=== PATIENT | male | born 1995 ===

== ENCOUNTER 2024-10-02 14:24 | Outpatient (AMB) | payer OTHER, SELFPAY ==
--- NOTE | 2024-10-02 14:35 | A.OFFPC_ITS ---
Vital Signs 10/02/24 14:37 Height 5 ft 10.08 in Weight 312 lb 2 oz BMI 44.7 BP 140/90 H Blood Pressure Location Lt brachial Position Sitting Pulse 88 Pulse Source Pulse Oximeter Temp 97.3 F Temp Source Temporal Artery Scan Pulse Oximetry (%) 98 Oxygen Delivery Method Room Air Intake Visit Reasons: Establish care Intake Note: Patient is a new patient here to establish care for wellness visit. Transferring care from [facility] ([facility]). Medical records have been requested and have not received. Medical Superintendent Required: No Train Clerk: Not Required per policy Accompanied by: Self / Same As Patient Allergies Seasonal Allergies Allergy (Intermediate, Verified 10/02/24 14:47) Itchy Eyes Medication List - Last Reconciled 10/02/24 by FLY George No Known Home Meds Tobacco use date assessed: 10/02/24 Dental Screening Dental Screen Date: 10/02/24 Did you have a dental visit in the last 12 months?: Yes Did you have a dental problem in the last 6 months where you did not have access to dental care?: No Was dental information given to patient?: Patient has dentist HPI Establish care HPI Details The patient is a 29-year-old male presenting to [facility]. Noted to have elevated blood pressure and concerns regarding sleep apnea. He reports not feeling well rested and experiencing fatigue during daytime, irrespective of sleep duration, with this fatigue persisting for an extended period. The repeat blood pressure readings conducted today showed 154/92 mmHg, indicating hypertension. He recounts more frequent urination at night which initially was suspected to relate to fluctuating blood sugar levels, and a family-initiated blood glucose monitoring revealed hypoglycemia while sleeping. The patient is morbidly obese, with more weight gain noted in the past three years, and there exists a family history that includes sleep apnea and hypertension, cardiac disease in his mother, and diabetes in his father. The patient's symptoms regarding tiredness may relate to sleep disturbances, possibly untreated sleep apnea, contributing to or worsening hypertension. He denies any past significant medical history or prescribed medications. [facility] Surgical History History of wisdom tooth extraction Family History Father Sleep apnea Diabetes Over weight Mother Sleep apnea Over weight Heart disease Other Heart problem Social History Housing: House Alcohol intake: never Patient Tobacco Use Status: Never used Tobacco e-Cigarette/Vaping Use: Never Used Second Hand Smoke Exposure: No service: No Current occupational status: employed Current occupation: [employer] Cognitive needs: No Hearing needs: No Vision needs: No Questionnaire PHQ-9 Over the last 2 weeks, how often have you been bothered by any of the following problems? 1. Little interest or pleasure in doing things: not at all 2. Feeling down, depressed, or hopeless: not at all 3. Trouble falling or staying asleep, or sleeping too much: more than half the days 4. Feeling tired or having little energy: more than half the days 5. Poor appetite or overeating: several days 6. Feeling bad about yourself - or that you are a failure or have let yourself or your family down: several days 7. Trouble concentrating on things, such as reading the newspaper or watching television: not at all 8. Moving or speaking so slowly that other people could have noticed. Or the opposite - being so fidgety or restless that you have been moving around a lot more than usual: not at all 9. Thoughts that you would be better off or of hurting yourself in some way: not at all Total score: 6 Depression Screening Interpretation: Positive Depression Screening Done: Yes 65309 - PHQ-9 Billing: Yes Source: Developed by Drs. Dustin Leonard, Venita Stock, Henrik Smith and colleagues, with an educational salvador from [employer]. Thrive Questionnaire Date Thrive assessed: 10/02/24 I am a: Patient What is your living situation today?: I have a steady place to live Within the past 12 months, did the food you bought not last and you didn't have the money to get more?: I choose not to answer this question Within the past 12 months, did you worry whether your food would run out before you got money to buy more?: I choose not to answer this question Do you have trouble paying for medicines?: No Do you have trouble getting transportation to medical appointments?: No Do you have trouble paying your heating and electricity bill?: No Do you have trouble taking care of your child, family member or friend?: No Do you have trouble with day-to-day activities such as bathing, preparing meals, shopping, managing finances, etc.?: No Are you currently unemployed and looking for a job?: No Are you interested in more education?: I choose not to answer this question Please select the resources that you would like help with: None Currently or been in a relationship where the following occur: No concerns reported THRIVE Score: 0 AUDIT C Alcohol Use Questionnaire (AUDIT-C) 1. How often do you have a drink containing alcohol?: Never Total Score: 0 SARAH-7 AMB Questionnaire SARAH-7 Date SARAH - 7 assessed: 10/02/24 Feeling nervous, anxious, or on edge: 0 = Not at all Not being able to stop or control worryin = Not at all Worrying too much about different things: 1 = Several days Trouble relaxin = Several days Being so restless that it is hard to sit still: 1 = Several days Becoming easily annoyed or irritable: 0 = Not at all Feeling afraid as if something awful might happen: 0 = Not at all Total ASRAH-7 score (0-4 normal; 5-9 mild; 10-14 moderate; 15-21 severe): 3 Source: Developed by Drs. Dustin Leonard, Venita Stock, Henrik Smith and colleagues, with an educational salvador from [employer]. SARAH-7 Assessment Billing SARAH-7 Assessment Tool: SARAH-7 Assessment 06715 Review of Systems Const Reports daytime sleepiness, Reports fatigue, Denies headache(s), Reports lethargy, Reports snoring and Reports weight gain Eyes Denies loss of vision ENT Denies vertigo, Denies dizziness, Denies headache(s) and Denies sore throat Card Denies chest pain, Denies leg edema, Denies lightheadedness and Reports dyspnea on exertion Resp Denies cough, Denies hemoptysis, Reports dyspnea on exertion, Reports snoring and Denies wheezing GI Denies abdominal pain, Denies melena, Denies constipation, Denies diarrhea and Denies vomiting Denies dysuria, Denies urinary frequency and Denies urinary urgency Musc Denies arthralgias, Denies joint swelling, Denies numbness and Denies tingling Neuro Denies Abnormal speech present, Denies behavioral changes, Denies vertigo, Denies dizziness, Denies headache(s), Denies loss of vision, Denies memory loss, Denies numbness and Denies tingling Psych Denies anxiety, Denies behavioral changes, Denies depression, Denies memory loss and Denies panic attacks Endo Reports fatigue Sunny/Lymph Denies easy bleeding and Denies easy bruising Aller/Immun Denies wheezing Physical exam (Primary Care) Vital Signs: Last Vital Signs Temp 97.3 F 10/02/24 14:37 Pulse 88 10/02/24 14:37 BP 140/90 H 10/02/24 14:37 Pulse Ox 98 10/02/24 14:37 Oxygen Delivery Method Room Air 10/02/24 14:37 BMI result Body Mass Index 44.7 Tobacco/Smoking Status: Tobacco use Status Tobacco use date assessed 10/02/24 10/02/24 14:46 Patient Tobacco Use Status Never used Tobacco 10/02/24 14:46 e-Cigarette/Vaping Use Never Used 10/02/24 14:46 PHQ-9: PHQ-9 Score PHQ-9: Total score 6 10/02/24 15:26 Depression Screening Interpretation: Positive Thrive Assessment: Date of Thrive Assessment Date Thrive assessed 10/02/24 10/02/24 14:46 Currently or been in a relationship where the following occur: No concerns reported Const General: healthy appearing, no acute distress, alert and awake Nutritional Appearance: well nourished Orientation/consciousness: oriented to person, oriented to place and oriented to time HENMT Ears: TM's normal bilaterally General nose exam: Normal nasal mucous membranes and turbinates present Eyes Conjunctivae: conjunctivae normal Sclerae: sclerae normal Pupils: Equal, round and reactive pupils present Neck Neck: Yes no lymphadenopathy and Yes no JVD Thyroid: Thyroid normal Carotids: no bruits Resp Effort & Inspection: normal respiratory effort and not tachypneic Auscultation: no crackles, no rales, no rhonchi and no wheezes Cardio Rate: regular rate Rhythm: regular rhythm Heart sounds: no murmurs and normal S1 and S2 GI Inspection: Yes obesity Palpation (GI): Soft to palpation, nontender, no hepatomegaly and no splenomegaly Auscultation: normal bowel sounds General: Yes no CVA tenderness Back/Spine/Pelvis Back: no CVA tenderness Skin General skin exam: no rashes or lesions noted and dry skin Neuro General: oriented to person, oriented to place and oriented to time Cranial nerves: Yes Equal, round and reactive pupils present Speech: No Abnormal speech present Gait exam (Neuro): Normal gait present Motor exam (neuro): no tremor noted Extrem Right upper extremity: full ROM Left upper extremity: full ROM Right lower extremity: full ROM; no edema Left lower extremity: full ROM; no edema Psych Mental Status: mental status grossly normal Speech and movement: Normal speech and movement present Affect: normal affect Attitude: cooperative Thought process: Normal thought process present Results AMB Hemoglobin A1c AMB Hemoglobin A1c 5.5 % Last Edit by KAUSHIK Pavon on 10/02/24 15:27 Results Reviewed Results Reviewed: Laboratory Last Values Hgb A1c (Clinic) 5.5 % (4.0-6.0) 10/02/24 15:26 Coding Level of Care Code New Pt Level 3 (74237) Diagnoses Snoring R06.83 Tiredness R53.83 Morbid obesity E66.01 Additional Codes PHQ-9 - 29522 - PHQ-9 Billing: Yes ([id number]) SARAH-7 Assessment Billing - SARAH-7 Assessment Tool: SARAH-7 Assessment 22253 ([id number]) Time Spent (min) 31 Assessment & Plan Assessment & Plan (1) Snoring: Code(s): R06.83 - Snoring Category: Medical (2) Tiredness: Code(s): R53.83 - Other fatigue Category: Medical (3) Morbid obesity: Code(s): E66.01 - Morbid (severe) obesity due to excess calories Category: Medical Plan A1c 5.5% in office, Started on Amlodipine 5 mg daily, discussed lowering salt and caffeine intake. 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 Completed ordered fasting labs prior to appointment. Home sleep study ordered. Consider weight management program follow sleep study results. Patient was informed and verbally consented to the use of an ambient scribe for clinic note documentation during this visit. Orders: Orders Hemoglobin A1c 10/02/24 R35.81 - Nocturnal polyuria, Z00.00 - Encounter for general adult medical examination without abnormal findings TSH reflex Free T4 10/02/24 R35.81 - Nocturnal polyuria, Z00.00 - Encounter for general adult medical examination without abnormal findings UA CC w/rflx Micro + Cult 10/02/24 R35.81 - Nocturnal polyuria, Z00.00 - Encounter for general adult medical examination without abnormal findings AMB Hemoglobin A1c 10/02/24 Z13.9 - Encounter for screening, unspecified Complete Blood Count Auto Diff 10/02/24 R35.81 - Nocturnal polyuria, Z00.00 - Encounter for general adult medical examination without abnormal findings Comprehensive [place]. Panel Fast 10/02/24 R35.81 - Nocturnal polyuria, Z00.00 - Encounter for general adult medical examination without abnormal findings Glucose Fasting 10/02/24 R35.81 - Nocturnal polyuria, Z00.00 - Encounter for general adult medical examination without abnormal findings Lipid Panel 10/02/24 R35.81 - Nocturnal polyuria, Z00.00 - Encounter for general adult medical examination without abnormal findings Vitamin D 25-OH Total 10/02/24 R35.81 - Nocturnal polyuria, Z00.00 - Encounter for general adult medical examination without abnormal findings RT home sleep study 10/02/24 R06.83 - Snoring, R53.83 - Other fatigue Medications: New amlodipine 5 mg PO DAILY 30 tabs 2RF R03.0 - Elevated blood-pressure reading, without diagnosis of hypertension Patient Instructions: - Start taking Amlodipine once daily for blood pressure. - Record blood pressure readings twice daily in the morning and evening. - Cut down on dietary salt and caffeine. - Schedule and complete in-home sleep study to evaluate for sleep apnea. - Return for follow-up in four weeks or sooner if symptoms worsen. - Follow dietary advice and monitor glucose levels as necessary.
[2024-10-02 14:37] VITALS: BP 140/90; PULSE 88; TEMP 36.3; O2SAT 98; BMI 44.7
== END 2024-10-02 15:33 | disposition home or self-care (01) ==
LOC: HO.HMCH 14:25
DX: Z13.9 Encounter for screening, unspecified (principal)

== ENCOUNTER → 2024-10-02 14:24 | Outpatient (BNVA) | payer OTHER, SELFPAY | DX: R06.83 Snoring (principal); R53.83 Other fatigue; E66.01 Morbid (severe) obesity due to excess calories; Z68.41 Body mass index [BMI] 40.0-44.9, adult; R35.81 Nocturnal polyuria; Z13.1 Encounter for screening for diabetes mellitus | CPT/HCPCS: 83036; 96127 ==

== ENCOUNTER 2024-10-07 07:43 | Outpatient (REF) | payer OTHER, SELFPAY ==
[2024-10-07 07:57] LABS: MANUAL DIFF FLAG NO
[2024-10-07 08:10] LABS: Basophils Absolute Auto 0.1 X10*3/uL (0.0-0.2); Eosinophils Absolute Auto 0.6 X10*3/uL (0.0-0.4); Eosinophils Percent Auto 7.9 % (0-4); Hematocrit 43.8 % (42.0-52.0); Hemoglobin 14.8 g/dl (14.0-18.0); Imm Gran Abs Auto 0.02 X10*3/uL (0.00-0.03); Imm Gran Pct Auto 0.3 % (0.0-0.4); Lymphocytes Absolute Auto 2.4 X10*3/uL (1.2-4.9); Lymphocytes Percent Auto 34.5 % (20-40); Mean Corpuscular HGB Conc 33.8 g/dl (31.0-36.0); Mean Corpuscular Hemoglobin 27.6 pg (27.0-33.0); Mean Corpuscular Volume 81.6 fL (80.0-98.0); Mean Platelet Volume 10.5 fL (9.4-12.4); Monocytes Absolute Auto 0.6 X10*3/uL (0.1-1.2); Monocytes Percent Auto 8.3 % (2-11); Neutrophils Absolute Auto 3.4 x10*3/uL (2.0-8.3); Platelet Count 260 X10*3/uL (160-400); Red Blood Count 5.37 X10*6/uL (4.60-5.80); Red Cell Distribution Width 13.3 % (11.0-16.0)
[2024-10-07 08:44] LABS: Estimated Average Glucose 117 mg/dL; Hemoglobin A1C 148.9169 umol/L; Hemoglobin A1c % 5.7 % (<6.0)
[2024-10-07 09:07] LABS: Appearance Urine Turbid; Color Urine Yellow; Glucose Urine UA Negative (Negative); Leukocyte Esterase Urine Negative (Negative); Nitrite Urine Negative (Negative); UMIC TRIGGER UACC YES; Urine Blood Trace (Negative); Urine Ketones Negative (Negative); Urine Protein 100 (2+) mg/dL (Neg-Trace)
[2024-10-07 09:15] LABS: Alanine Aminotransferase 47 U/L (0-40); Albumin Level 4.2 g/dL (3.5-5.0); Alkaline Phosphatase 61 U/L (39-117); Anion Gap 10 (12-20); Aspartate Amino Transferase 26 U/L (5-37); Bilirubin Total 0.6 mg/dL (0.0-1.0); Blood Urea Nitrogen 14 mg/dL (9-16); Calcium 9.1 mg/dL (8.4-10.2); Carbon Dioxide 23 mmol/L (22-29); Chloride 109 mmol/L (96-108); Cholesterol 146 mg/dL (<200); Estimated Glomerular Filt Rate > 60; Glucose Fasting 118 mg/dL (60-99); HDL Cholesterol 38 mg/dL (>40); LDL Cholesterol Calculated 95 mg/dL (<100); Potassium 4.1 mmol/L (3.3-5.1); Sodium 138 mmol/L (135-145); Total Protein 7.2 g/dL (6.5-8.0); Triglycerides 65 mg/dL (<150)
[2024-10-07 09:24] LABS: Bacteria Urine Trace (None Seen); Hyaline Casts Urine 0-2 /LPF (0-2); RBC Urine 0-2 /HPF (0-2); Squamous Epithelial Cell Urine 0-2 /HPF (0-2); UACC Culture Trigger YES
[2024-10-07 09:25] LABS: TSH reflex Free T4 2.12 uIU/mL (0.32-4.0)
== END 2024-10-07 07:44 | disposition home or self-care (01) ==
LOC: HO.LAB 07:43
DX: Z00.00 Encounter for general adult medical examination without abnormal findings (principal); R35.81 Nocturnal polyuria; Z13.1 Encounter for screening for diabetes mellitus; Z13.29 Encounter for screening for other suspected endocrine disorder; Z13.220 Encounter for screening for lipoid disorders
CPT/HCPCS: 36415; 80053; 80061; 81001; 82306; 83036; 84443; 85025; 87086

== ENCOUNTER 2024-10-30 14:49 | Outpatient (AMB) | payer OTHER, SELFPAY ==
--- NOTE | 2024-10-30 15:08 | A.OFFPC_ITS ---
Vital Signs 10/30/24 15:10 Height 5 ft 10.08 in Weight 311 lb 2 oz BMI 44.5 BP 140/80 H Blood Pressure Location Lt brachial Position Sitting Pulse 92 Pulse Source Pulse Oximeter Temp 97.1 F Temp Source Temporal Artery Scan Pulse Oximetry (%) 97 Oxygen Delivery Method Room Air Intake Visit Reasons: blood evaluation/new med started Intake Note: Patient is here to follow up on Evaluated Blood pressure and med review. Photography And Prints Curator Required: No Magnet Maker: Not Required per policy Accompanied by: Self / Same As Patient Allergies Seasonal Allergies Allergy (Intermediate, Verified 10/30/24 15:20) Itchy Eyes Medication List - Last Reconciled 10/30/24 by FLY George lisinopril 5 mg PO DAILY Tobacco use date assessed: 10/30/24 Dental Screening Dental Screen Date: 10/02/24 HPI blood evaluation/new med started HPI Details The patient is a 29-year-old male presenting for evaluation of elevated blood pressure. He was started on lisinopril on his previous visit Blood pressure reading in office 138/86. The patient is having readings in the 120/70s at at home Denies chest pain, shortness of breath, heart palpitation or dizziness Reports intermittent cough/nasal congestion/mouth breathing for over a week No abdominal pain/change in bowel habits Denies urinary symptoms PFSH Surgical History History of wisdom tooth extraction Family History Father Sleep apnea Diabetes Over weight Mother Sleep apnea Over weight Heart disease Other Heart problem Social History Housing: House Alcohol intake: never Patient Tobacco Use Status: Never used Tobacco e-Cigarette/Vaping Use: Never Used Second Hand Smoke Exposure: No service: No Current occupational status: employed Current occupation: [employer] Cognitive needs: No Hearing needs: No Vision needs: No Questionnaire Thrive Questionnaire Date Thrive assessed: 10/02/24 I am a: Patient What is your living situation today?: I have a steady place to live Within the past 12 months, did the food you bought not last and you didn't have the money to get more?: I choose not to answer this question Within the past 12 months, did you worry whether your food would run out before you got money to buy more?: I choose not to answer this question Do you have trouble paying for medicines?: No Do you have trouble getting transportation to medical appointments?: No Do you have trouble paying your heating and electricity bill?: No Do you have trouble taking care of your child, family member or friend?: No Do you have trouble with day-to-day activities such as bathing, preparing meals, shopping, managing finances, etc.?: No Are you currently unemployed and looking for a job?: No Are you interested in more education?: I choose not to answer this question Please select the resources that you would like help with: None Currently or been in a relationship where the following occur: No concerns reported THRIVE Score: 0 SARAH-7 AMB Questionnaire SARAH-7 Date SARAH - 7 assessed: 10/02/24 Source: Developed by Drs. Dustin Leonard, Venita Stock, Henrik Smith and colleagues, with an educational salvador from [employer]. Review of Systems Const Denies headache(s) and Reports snoring Eyes Denies loss of vision ENT Denies vertigo, Denies dizziness, Denies headache(s), Reports nasal congestion and Denies sore throat Card Denies chest pain, Denies leg edema and Denies lightheadedness Resp Reports cough (Intermittent), Denies hemoptysis, Reports snoring and Denies wheezing GI Denies abdominal pain, Denies melena, Denies constipation, Denies diarrhea and Denies vomiting Denies dysuria, Denies urinary frequency and Denies urinary urgency Musc Denies arthralgias, Denies joint swelling, Denies numbness and Denies tingling Neuro Denies Abnormal speech present, Denies behavioral changes, Denies vertigo, Denies dizziness, Denies headache(s), Denies loss of vision, Denies memory loss, Denies numbness and Denies tingling Psych Denies anxiety, Denies behavioral changes, Denies depression, Denies memory loss and Denies panic attacks Sunny/Lymph Denies easy bleeding and Denies easy bruising Aller/Immun Denies wheezing Physical exam (Primary Care) Vital Signs: Last Vital Signs Temp 97.1 F 10/30/24 15:10 Pulse 92 10/30/24 15:10 BP 140/80 H 10/30/24 15:10 Pulse Ox 97 10/30/24 15:10 Oxygen Delivery Method Room Air 10/30/24 15:10 BMI result Body Mass Index 44.5 Tobacco/Smoking Status: Tobacco use Status Tobacco use date assessed 10/30/24 10/30/24 15:10 Patient Tobacco Use Status Never used Tobacco 10/30/24 15:10 e-Cigarette/Vaping Use Never Used 10/30/24 15:10 Thrive Assessment: Date of Thrive Assessment Date Thrive assessed 10/02/24 10/30/24 15:10 Currently or been in a relationship where the following occur: No concerns reported Const General: healthy appearing, no acute distress, alert and awake Nutritional Appearance: well nourished Orientation/consciousness: oriented to person, oriented to place and oriented to time HENMT Ears: TM's normal bilaterally General nose exam: Abnormal mucous membranes and turbinates present boggy and erythematous and Nasal discharge present purulent on the right Eyes Conjunctivae: conjunctivae normal Sclerae: sclerae normal Pupils: Equal, round and reactive pupils present Neck Neck: Yes no lymphadenopathy and Yes no JVD Thyroid: Thyroid normal Carotids: no bruits Resp Effort & Inspection: normal respiratory effort and not tachypneic Auscultation: no crackles, no rales, no rhonchi and no wheezes Cardio Rate: regular rate Rhythm: regular rhythm Heart sounds: no murmurs and normal S1 and S2 GI Palpation (GI): Soft to palpation, nontender, no hepatomegaly and no splenomegaly Auscultation: normal bowel sounds Skin General skin exam: no rashes or lesions noted and dry skin Neuro General: oriented to person, oriented to place and oriented to time Cranial nerves: Yes Equal, round and reactive pupils present Speech: No Abnormal speech present Gait exam (Neuro): Normal gait present Motor exam (neuro): no tremor noted Extrem Right upper extremity: full ROM Left upper extremity: full ROM Right lower extremity: full ROM; no edema Left lower extremity: full ROM; no edema Psych Mental Status: mental status grossly normal Speech and movement: Normal speech and movement present Affect: normal affect Attitude: cooperative Thought process: Normal thought process present Results Reviewed Results Reviewed: Laboratory Tests 10/07/24 10/07/24 07:49 07:56 WBC 7.0 RBC 5.37 Hgb 14.8 Hct 43.8 MCV 81.6 MCH 27.6 MCHC 33.8 RDW 13.3 Plt Count 260 MPV 10.5 Sodium 138 Potassium 4.1 Chloride 109 H Carbon Dioxide 23 Anion Gap 10 L BUN 14 Creatinine 0.82 Estimated GFR > 60 Fasting Glucose 118 H Estimat Average Glucose 117 Hemoglobin A1c % 5.7 Calcium 9.1 Total Bilirubin 0.6 AST 26 ALT 47 H Alkaline Phosphatase 61 Total Protein 7.2 Albumin 4.2 Triglycerides 65 Cholesterol 146 LDL Cholesterol, Calc 95 HDL Cholesterol 38 L 25-OH Vitamin D Total 24.0 L TSH 2.12 Urine Color Yellow Urine Appearance Turbid Urine pH 6.0 Ur Specific [place] 1.020 Urine Protein 100 (2+) H Urine Glucose (UA) Negative Urine Ketones Negative Urine Blood Trace H Urine Nitrite Negative Ur Leukocyte Esterase Negative Urine RBC 0-2 Urine WBC 6-10 H Ur Squamous Epith Cells 0-2 Urine Bacteria Trace Hyaline Casts 0-2 Coding Level of Care Code Est Pt Level 4 (42009) Diagnoses Elevated ALT measurement R74.01 Vitamin D deficiency E55.9 Impaired fasting glucose R73.01 Morbid obesity E66.01 Elevated blood pressure reading in office without diagnosis of hypertension R03.0 Other microscopic hematuria R31.29 Hematuria type: other microscopic Rhinosinusitis J32.9 Time Spent (min) 38 Assessment & Plan Assessment & Plan (1) Elevated ALT measurement: Code(s): R74.01 - Elevation of levels of liver transaminase levels Category: Medical Plan: ALT slightly elevated. Patient denies drinking alcohol and only takes Tylenol sparingly. Encouraged the patient to work on losing weight, which will help decreasing his liver enzyme. (2) Vitamin D deficiency: Code(s): E55.9 - Vitamin D deficiency, unspecified Category: Medical Plan: Encouraged vitamin D3 a 1000 IU OTC (3) Impaired fasting glucose: Code(s): R73.01 - Impaired fasting glucose Category: Medical Plan: Fasting glucose 118. A1c 5.7%. Informed the patient that he is right at the cutoff of being prediabetic Encouraged a low sugar/carbohydrate diet and activity as tolerated (4) Morbid obesity: Code(s): E66.01 - Morbid (severe) obesity due to excess calories Category: Medical Plan: Encouraged to exercise for at least 30 minutes a day/5 days a week Healthy eating discussed. Encouraged to eat fruits/vegetables, protein- fish/baked chicken, and to avoid salty/fried foods, sweets, caffeine and carbohydrates. Encouraged to increase water intake 6-8 glasses a day (5) Elevated blood pressure reading in office without diagnosis of hypertension: Code(s): R03.0 - Elevated blood-pressure reading, without diagnosis of hypertension Category: Medical Plan: Blood pressure 140/80 in office. Rechecked 138/86. The patient is having readings in the 120s/70s at at home Continue lisinopril 5 mg daily. Encouraged mg blood pressure closely at home and forward readings on portal (6) Hematuria: Code(s): R31.9 - Hematuria, unspecified Category: Medical Qualifiers: Hematuria type: other microscopic Qualified Code(s): R31.29 - Other microscopic hematuria Plan: Trace blood in the urine. Asymptomatic She will recheck urinalysis (7) Rhinosinusitis: Code(s): J32.9 - Chronic sinusitis, unspecified Category: Medical Plan: Z-Solis ordered. Prednisone tapered and Flonase inhaler ordered Plan Follow up in 3 months. Complete preordered labs prior to follow up appointment Orders: Orders Complete Blood Count Auto Diff 3 Months E55.9 - Vitamin D deficiency, unspecified, E66.01 - Morbid (severe) obesity due to excess calories, R03.0 - Elevated blood-pressure reading, without diagnosis of hypertension, R73.01 - Impaired fasting glucose, R74.01 - Elevation of levels of liver transaminase levels Comprehensive [place]. Panel Fast 3 Months E55.9 - Vitamin D deficiency, unspecified, E66.01 - Morbid (severe) obesity due to excess calories, R03.0 - Elevated blood-pressure reading, without diagnosis of hypertension, R73.01 - Impaired fasting glucose, R74.01 - Elevation of levels of liver transaminase levels Lipid Panel 3 Months E55.9 - Vitamin D deficiency, unspecified, E66.01 - Morbid (severe) obesity due to excess calories, R03.0 - Elevated blood-pressure reading, without diagnosis of hypertension, R73.01 - Impaired fasting glucose, R74.01 - Elevation of levels of liver transaminase levels TSH reflex Free T4 3 Months E55.9 - Vitamin D deficiency, unspecified, E66.01 - Morbid (severe) obesity due to excess calories, R03.0 - Elevated blood-pressure reading, without diagnosis of hypertension, R73.01 - Impaired fasting glucose, R74.01 - Elevation of levels of liver transaminase levels UA CC w/rflx Micro + Cult 3 Months E55.9 - Vitamin D deficiency, unspecified, E66.01 - Morbid (severe) obesity due to excess calories, R03.0 - Elevated blood- pressure reading, without diagnosis of hypertension, R73.01 - Impaired fasting glucose, R74.01 - Elevation of levels of liver transaminase levels Vitamin D 25-OH Total 3 Months E55.9 - Vitamin D deficiency, unspecified, E66.01 - Morbid (severe) obesity due to excess calories, R03.0 - Elevated blood- pressure reading, without diagnosis of hypertension, R73.01 - Impaired fasting glucose, R74.01 - Elevation of levels of liver transaminase levels Hemoglobin A1c 3 Months E55.9 - Vitamin D deficiency, unspecified, E66.01 - Morbid (severe) obesity due to excess calories, R03.0 - Elevated blood-pressure reading, without diagnosis of hypertension, R73.01 - Impaired fasting glucose, R74.01 - Elevation of levels of liver transaminase levels Medications: New azithromycin For 250 mg dose pack: take 500 mg today (day 1), then 250 mg for 4 days (days 2-5) PO 6 tabs 0RF prednisone see taper instructions take 4 tabs x 2 days, then 3 tabs x2 days, then 2 tabs x 2 days, then 1 tab x 2 days 10 mg PO DIRECTED 20 tabs 0RF fluticasone propionate 50 mcg/actuation administer into each nostril 2 sprays intranasal BID 16 grams 0RF
[2024-10-30 15:10] VITALS: BP 140/80; PULSE 92; TEMP 36.2; O2SAT 97; BMI 44.5
== END 2024-10-30 16:09 | disposition home or self-care (01) ==
LOC: HO.HMCH 14:50
DX: R74.01 Elevation of levels of liver transaminase levels (principal); E66.01 Morbid (severe) obesity due to excess calories; Z68.41 Body mass index [BMI] 40.0-44.9, adult; E55.9 Vitamin D deficiency, unspecified; R73.01 Impaired fasting glucose; R03.0 Elevated blood-pressure reading, without diagnosis of hypertension; R31.29 Other microscopic hematuria; J32.9 Chronic sinusitis, unspecified

== ENCOUNTER → 2024-10-30 14:49 | Outpatient (BNVA) | payer OTHER, SELFPAY | DX: Z13.89 Encounter for screening for other disorder (principal) ==

== ENCOUNTER 2024-11-20 14:51 | Outpatient (AMB) | payer OTHER, SELFPAY ==
--- NOTE | 2024-11-20 14:54 | MHC.PC.OV ---
Vital Signs 11/20/24 14:57 Height 5 ft 10.8 in Weight 312 lb BMI 43.8 BP 138/68 Blood Pressure Location Lt brachial Position Sitting Pulse 81 Pulse Source Pulse Oximeter Temp 97.1 F Temp Source Temporal Artery Scan Pulse Oximetry (%) 98 Oxygen Delivery Method Room Air Intake Visit Reasons: ear flush Intake Note: Patient is here to follow up on Ear flush. Assembling Fabricator Required: No Barrel Cap Setter: Not Required per policy Accompanied by: Self / Same As Patient Allergies Seasonal Allergies Allergy (Intermediate, Verified 11/20/24 15:14) Itchy Eyes Medication List - Last Reconciled 11/20/24 by Marianne Zamora PA-C fluticasone propionate 50 mcg/actuation 2 sprays intranasal BID lisinopril 5 mg PO DAILY Tobacco use date assessed: 11/20/24 Dental Screening Dental Screen Date: 10/02/24 HPI ear flush HPI Details 29-year-old male coming to the office for ear cleaning. Has been using debrox drops OTC for one week. [facility] Surgical History History of wisdom tooth extraction Family History Father Sleep apnea Diabetes Over weight Mother Sleep apnea Over weight Heart disease Other Heart problem Social History Housing: House Alcohol intake: never Patient Tobacco Use Status: Never used Tobacco e-Cigarette/Vaping Use: Never Used Second Hand Smoke Exposure: No service: No Current occupational status: employed Current occupation: [employer] Cognitive needs: No Hearing needs: No Vision needs: No Questionnaire Thrive Questionnaire Date Thrive assessed: 11/20/24 I am a: Patient What is your living situation today?: I have a steady place to live Within the past 12 months, did the food you bought not last and you didn't have the money to get more?: I choose not to answer this question Within the past 12 months, did you worry whether your food would run out before you got money to buy more?: I choose not to answer this question Do you have trouble paying for medicines?: No Do you have trouble getting transportation to medical appointments?: No Do you have trouble paying your heating and electricity bill?: No Do you have trouble taking care of your child, family member or friend?: No Do you have trouble with day-to-day activities such as bathing, preparing meals, shopping, managing finances, etc.?: No Are you currently unemployed and looking for a job?: No Are you interested in more education?: I choose not to answer this question Please select the resources that you would like help with: None Currently or been in a relationship where the following occur: No concerns reported THRIVE Score: 0 SARAH-7 AMB Questionnaire SARAH-7 Date SARAH - 7 assessed: 10/02/24 Source: Developed by Drs. Dustin Leonard, Venita Stock, Henrik Smith and colleagues, with an educational salvador from [employer]. Review of Systems ENT Details: Decreased hearing in clogged feeling bilaterally Physical exam (Primary Care) Vital Signs: Last Vital Signs Temp 97.1 F 11/20/24 14:57 Pulse 81 11/20/24 14:57 BP 138/68 11/20/24 14:57 Pulse Ox 98 11/20/24 14:57 Oxygen Delivery Method Room Air 11/20/24 14:57 BMI result Body Mass Index 43.8 Tobacco/Smoking Status: Tobacco use Status Tobacco use date assessed 11/20/24 11/20/24 15:04 Patient Tobacco Use Status Never used Tobacco 11/20/24 15:04 e-Cigarette/Vaping Use Never Used 11/20/24 15:04 Thrive Assessment: Date of Thrive Assessment Date Thrive assessed 11/20/24 11/20/24 15:04 Currently or been in a relationship where the following occur: No concerns reported Const General: cooperative, healthy appearing, comfortable and no acute distress HENMT Head: Yes normocephalic Ears: hearing grossly normal bilaterally, TM's normal bilaterally and Abnormal EAC present foreign body on the left General nose exam: Normal external nose present Resp Effort & Inspection: normal respiratory effort Cardio Rate: regular rate Extrem General: Yes normal to inspection, Yes full ROM and No edema Psych Affect: normal affect Attitude: cooperative Insight: Good insight present (Psych) Judgement: Good judgement present (Psych) Coding Level of Care Code Procedure Only Diagnoses Foreign body in left ear T16.2XXA Assessment & Plan Assessment & Plan (1) Foreign body in left ear: Code(s): T16.2XXA - Foreign body in left ear, initial encounter Category: Medical Plan: Foreign body was successfully removed using lighted curette. Ear canal and TM was atraumatic. TM was visualized as intact with well aerated middle ear spaces without retraction or perforation. Foreign body was identified as a Q-tip cotton recommend against the use of Q-tips going forward. Plan This note was constructed using voice recognition software. While every effort has been made to ensure accuracy and drop shipment clerk, still areas may have been included sometimes these areas may affect the content or meeting of the given symptoms. Total time spent caring for the patient today was twenty minutes. This includes time spent before the visit reviewing the chart, time spent during the visit, and time spent after the visit and documentation.
[2024-11-20 14:57] VITALS: BP 138/68; PULSE 81; TEMP 36.2; O2SAT 98; BMI 43.8
== END 2024-11-20 15:39 | disposition home or self-care (01) ==
LOC: HO.HMCH 14:52
DX: T16.2XXA Foreign body in left ear, initial encounter (principal)

== ENCOUNTER → 2024-11-20 14:51 | Outpatient (BNVA) | payer OTHER, SELFPAY | DX: T16.2XXA Foreign body in left ear, initial encounter (principal); W44.8XXA Other foreign body entering into or through a natural orifice, initial encounter; Y93.9 Activity, unspecified; Y92.9 Unspecified place or not applicable; Y99.9 Unspecified external cause status | CPT/HCPCS: 69200 ==

== ENCOUNTER → 2024-12-12 12:49 | Outpatient (REF) | payer OTHER, SELFPAY | LOC: HO.SL 12:49 | DX: G47.33 Obstructive sleep apnea (adult) (pediatric) (principal); R53.83 Other fatigue; R06.83 Snoring | CPT/HCPCS: 95806 ==

== ENCOUNTER → 2024-12-12 13:33 | Outpatient (BNV) | payer OTHER, SELFPAY | PROVIDERS: Visit Provider Internal Medicine | DX: G47.33 Obstructive sleep apnea (adult) (pediatric) (principal) | CPT/HCPCS: 95806 ==

== ENCOUNTER 2025-01-30 15:19 | Outpatient (AMB) | payer OTHER, SELFPAY ==
[2025-01-30 15:28] VITALS: BP 136/70; PULSE 80; RESP 18; O2SAT 98; BMI 43.9
--- NOTE | 2025-01-30 15:28 | MHC.PC.OV ---
Vital Signs 01/30/25 15:28 01/30/25 15:58 Height 5 ft 10.8 in Weight 313 lb 6 oz BMI 43.9 BP 136/70 134/82 Blood Pressure Location Lt brachial Rt brachial Position Sitting Sitting Respiration 18 Pulse 80 Pulse Source Pulse Oximeter Temp Source Temporal Artery Scan Pulse Oximetry (%) 98 Oxygen Delivery Method Room Air Intake Visit Reasons: 3 month f/u Pharmacist In Charge Owner Required: No Accompanied by: Self / Same As Patient Allergies Seasonal Allergies Allergy (Intermediate, Verified 01/30/25 15:52) Itchy Eyes Medication List - Last Reconciled 01/30/25 by FLY George fluticasone propionate 50 mcg/actuation 2 sprays intranasal BID lisinopril 5 mg PO DAILY Tobacco use date assessed: 01/30/25 Dental Screening Dental Screen Date: 01/30/25 Did you have a dental visit in the last 12 months?: Yes Did you have a dental problem in the last 6 months where you did not have access to dental care?: No Was dental information given to patient?: Patient has dentist HPI 3 month f/u HPI Details The patient is a 29-year-old male presenting with concerns regarding blood pressure management, liver enzyme levels, and weight management. The patient has a history of essential hypertension, which has been a primary concern during this visit. Blood pressure readings have shown improvement, and the patient is advised to continue monitoring at home. Previously, liver enzyme levels were noted to be slightly elevated, prompting a follow-up to ensure they are decreasing. The patient is advised to undergo further blood work to monitor these levels. The patient is also diagnosed with obstructive sleep apnea and is awaiting the provision of a CPAP machine, expected in March. The use of the CPAP machine is anticipated to improve both sleep quality and blood pressure control. The patient expresses concern about obesity, with a current weight of 313 pounds, which has remained relatively stable over recent measurements. Lifestyle modifications, including dietary changes and increased physical activity, are recommended as initial interventions. PFSH Surgical History History of wisdom tooth extraction Family History Father Sleep apnea Diabetes Over weight Mother Sleep apnea Over weight Heart disease Other Heart problem Social History Housing: House Alcohol intake: never Patient Tobacco Use Status: Never used Tobacco e-Cigarette/Vaping Use: Never Used Second Hand Smoke Exposure: No service: No Current occupational status: employed Current occupation: [employer] Cognitive needs: No Hearing needs: No Vision needs: No Questionnaire PHQ-9 Over the last 2 weeks, how often have you been bothered by any of the following problems? 1. Little interest or pleasure in doing things: not at all 2. Feeling down, depressed, or hopeless: not at all 3. Trouble falling or staying asleep, or sleeping too much: more than half the days 4. Feeling tired or having little energy: more than half the days 5. Poor appetite or overeating: several days 6. Feeling bad about yourself - or that you are a failure or have let yourself or your family down: several days 7. Trouble concentrating on things, such as reading the newspaper or watching television: not at all 8. Moving or speaking so slowly that other people could have noticed. Or the opposite - being so fidgety or restless that you have been moving around a lot more than usual: not at all 9. Thoughts that you would be better off or of hurting yourself in some way: not at all Total score: 6 Depression Screening Interpretation: Positive Depression Screening Done: Yes Source: Developed by Drs. Dustin Leonard, Venita Stock, Henrik Smith and colleagues, with an educational salvador from [employer]. Thrive Questionnaire Date Thrive assessed: 01/30/25 I am a: Patient What is your living situation today?: I have a steady place to live Within the past 12 months, did the food you bought not last and you didn't have the money to get more?: I choose not to answer this question Within the past 12 months, did you worry whether your food would run out before you got money to buy more?: I choose not to answer this question Do you have trouble paying for medicines?: No Do you have trouble getting transportation to medical appointments?: No Do you have trouble paying your heating and electricity bill?: No Do you have trouble taking care of your child, family member or friend?: No Do you have trouble with day-to-day activities such as bathing, preparing meals, shopping, managing finances, etc.?: No Are you currently unemployed and looking for a job?: No Are you interested in more education?: I choose not to answer this question Please select the resources that you would like help with: None Currently or been in a relationship where the following occur: No concerns reported THRIVE Score: 0 AUDIT C Alcohol Use Questionnaire (AUDIT-C) 1. How often do you have a drink containing alcohol?: Never 3. How often do you have six or more drinks on one occasion?: Never Total Score: 0 SARAH-7 AMB Questionnaire SARAH-7 Date SARAH - 7 assessed: 01/30/25 Feeling nervous, anxious, or on edge: 0 = Not at all Not being able to stop or control worryin = Not at all Worrying too much about different things: 1 = Several days Trouble relaxin = Several days Being so restless that it is hard to sit still: 1 = Several days Becoming easily annoyed or irritable: 0 = Not at all Feeling afraid as if something awful might happen: 0 = Not at all Total SARAH-7 score (0-4 normal; 5-9 mild; 10-14 moderate; 15-21 severe): 3 Source: Developed by Drs. Dustin Leonard, Venita Stock, Henrik Smith and colleagues, with an educational salvador from [employer]. Review of Systems Const Reports daytime sleepiness, Denies headache(s), Reports lethargy and Reports snoring Eyes Denies loss of vision ENT Denies vertigo, Denies dizziness, Denies headache(s) and Denies sore throat Card Denies chest pain, Denies leg edema and Denies lightheadedness Resp Denies cough, Denies hemoptysis, Reports snoring and Denies wheezing GI Denies abdominal pain, Denies melena, Denies constipation, Denies diarrhea and Denies vomiting Denies dysuria, Denies urinary frequency and Denies urinary urgency Musc Denies arthralgias, Denies joint swelling, Denies numbness and Denies tingling Neuro Denies Abnormal speech present, Denies behavioral changes, Denies vertigo, Denies dizziness, Denies headache(s), Denies loss of vision, Denies memory loss, Denies numbness and Denies tingling Psych Denies anxiety, Denies behavioral changes, Denies depression, Denies memory loss and Denies panic attacks Sunny/Lymph Denies easy bleeding and Denies easy bruising Aller/Immun Denies wheezing Physical exam (Primary Care) Vital Signs: Last Vital Signs Pulse 80 01/30/25 15:28 Resp 18 01/30/25 15:28 BP 134/82 01/30/25 15:58 Pulse Ox 98 01/30/25 15:28 Oxygen Delivery Method Room Air 01/30/25 15:28 BMI result Body Mass Index 43.9 Tobacco/Smoking Status: Tobacco use Status Tobacco use date assessed 01/30/25 01/30/25 15:30 Patient Tobacco Use Status Never used Tobacco 01/30/25 15:30 e-Cigarette/Vaping Use Never Used 01/30/25 15:30 PHQ-9: PHQ-9 Score PHQ-9: Total score 6 01/30/25 16:02 Depression Screening Interpretation: Positive Thrive Assessment: Date of Thrive Assessment Date Thrive assessed 01/30/25 01/30/25 15:30 Currently or been in a relationship where the following occur: No concerns reported Const General: healthy appearing, no acute distress, alert and awake Nutritional Appearance: well nourished Orientation/consciousness: oriented to person, oriented to place and oriented to time HENMT Ears: TM's normal bilaterally General nose exam: Normal nasal mucous membranes and turbinates present Eyes Conjunctivae: conjunctivae normal Sclerae: sclerae normal Pupils: Equal, round and reactive pupils present Neck Neck: Yes no lymphadenopathy and Yes no JVD Thyroid: Thyroid normal Carotids: no bruits Resp Effort & Inspection: normal respiratory effort and not tachypneic Auscultation: no crackles, no rales, no rhonchi and no wheezes Cardio Rate: regular rate Rhythm: regular rhythm Heart sounds: no murmurs and normal S1 and S2 GI Palpation (GI): Soft to palpation, nontender, no hepatomegaly and no splenomegaly Auscultation: normal bowel sounds Skin General skin exam: no rashes or lesions noted and dry skin Neuro General: oriented to person, oriented to place and oriented to time Cranial nerves: Yes Equal, round and reactive pupils present Speech: No Abnormal speech present Gait exam (Neuro): Normal gait present Motor exam (neuro): no tremor noted Extrem Right upper extremity: full ROM Left upper extremity: full ROM Right lower extremity: full ROM; no edema Left lower extremity: full ROM; no edema Psych Mental Status: mental status grossly normal Speech and movement: Normal speech and movement present Affect: normal affect Attitude: cooperative Thought process: Normal thought process present Coding Level of Care Code Est Pt Level 3 (72267) Diagnoses Elevated blood pressure reading in office without diagnosis of hypertension R03.0 Impaired fasting glucose R73.01 Morbid obesity E66.01 Vitamin D deficiency E55.9 Elevated ALT measurement R74.01 Snoring R06.83 Obstructive apnea G47.33 Tiredness R53.83 Time Spent (min) 36 Assessment & Plan Assessment & Plan (1) Elevated blood pressure reading in office without diagnosis of hypertension: Code(s): R03.0 - Elevated blood-pressure reading, without diagnosis of hypertension Category: Medical (2) Impaired fasting glucose: Code(s): R73.01 - Impaired fasting glucose Category: Medical (3) Morbid obesity: Code(s): E66.01 - Morbid (severe) obesity due to excess calories Category: Medical (4) Vitamin D deficiency: Code(s): E55.9 - Vitamin D deficiency, unspecified Category: Medical (5) Elevated ALT measurement: Code(s): R74.01 - Elevation of levels of liver transaminase levels Category: Medical (6) Snoring: Code(s): R06.83 - Snoring Category: Medical (7) Obstructive apnea: Code(s): G47.33 - Obstructive sleep apnea (adult) (pediatric) Category: Medical (8) Tiredness: Code(s): R53.83 - Other fatigue Category: Medical Plan The plan includes continued monitoring of blood pressure at home, with the expectation that the initiation of CPAP therapy will further improve control. The patient is advised to undergo follow-up blood work to reassess liver enzyme levels prior to the next appointment. Lifestyle modifications are emphasized, including dietary changes to reduce sodium intake and increased physical activity to address obesity. The patient is encouraged to explore affordable exercise options, such as joining a gym, to facilitate regular physical activity. Vitamin D3 OTC was encouraged. Patient was informed and verbally consented to the use of an ambient scribe for clinic note documentation during this visit.
[2025-01-30 15:58] VITALS: BP 134/82
== END 2025-01-30 16:24 | disposition home or self-care (01) ==
LOC: HO.HMCH 15:20
DX: R03.0 Elevated blood-pressure reading, without diagnosis of hypertension (principal); E66.01 Morbid (severe) obesity due to excess calories; Z68.41 Body mass index [BMI] 40.0-44.9, adult; R73.01 Impaired fasting glucose; E55.9 Vitamin D deficiency, unspecified; R74.01 Elevation of levels of liver transaminase levels; R06.83 Snoring; G47.33 Obstructive sleep apnea (adult) (pediatric); R53.83 Other fatigue

== ENCOUNTER 2025-03-21 14:11 | Outpatient (AMB) | payer OTHER, SELFPAY ==
--- NOTE | 2025-03-21 14:13 | MHC.OFFVIS ---
Vital Signs 03/21/25 14:14 Height 5 ft 10 in Weight 321 lb BMI 46.1 BP 114/74 Blood Pressure Location Lt brachial Position Sitting Pulse 95 Pulse Source Pulse Oximeter Pulse Oximetry (%) 97 Oxygen Delivery Method Room Air Intake Visit Reasons: INP - BARTOLO Intake Note: Patient presents RN NEONATAL BARTOLO. The patient is also diagnosed with obstructive sleep apnea and is awaiting the provision of a CPAP machine, expected in March. HST in chart(AHI-26, DI-78%. APAP 6-20cm) Accompanied by: Self / Same As Patient Allergies Seasonal Allergies Allergy (Intermediate, Verified 03/21/25 14:20) Itchy Eyes HPI Comments Details: 29 year old male is referred to us by his pcp Jorge Blackburn for an evaluation of sleep apnea. HST c/w AHI of 26 and Oxygen nadirs to 78% will start him on cpap [id number] and follow up for compliance. He has a + fh of BARTOLO. He wakes up feeling very tired, and despite getting 8 hours of sleep he continues to be fatigued. 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 He snores loudly and gasping for air, his has notices he stops breathing. He gets up for the bathroom 1-2x a night. Denies morning headaches, GERD, bruxism and jaw pain. RLS symptoms he denies but the legs mainly calves are still going, can be jumpy, with tingling , they feel uncomfortable sensation and he uses pillows in between his knees which decreases the sensation.Denies paresthesias. Memory is foggy, does not remember why he is doing the tasks he performs. He has difficulty recalling words due to a language barrier. He denies lack of attention and orientation. Mood is stable. His diet is improving, he is trying to eat a healthier diet and stays well hydrated. His bp is managed with lisinopril 5mg po daily. FH + for dad has diabetes, and mom 51 has CV disease and EF of 16%. [facility] Surgical History History of wisdom tooth extraction Family History Father Sleep apnea Diabetes Over weight Mother Sleep apnea Over weight Heart disease Other Heart problem Social History Housing: House Alcohol intake: never Patient Tobacco Use Status: Never used Tobacco e-Cigarette/Vaping Use: Never Used Second Hand Smoke Exposure: No service: No Current occupational status: employed Current occupation: [employer] Cognitive needs: No Hearing needs: No Vision needs: No Physical Exam Vital Signs: Last Vital Signs Pulse 95 03/21/25 14:14 BP 114/74 03/21/25 14:14 Pulse Ox 97 03/21/25 14:14 Oxygen Delivery Method Room Air 03/21/25 14:14 BMI result Body Mass Index 46.1 Const General: cooperative, comfortable and no acute distress Nutritional Appearance: overweight Orientation/consciousness: patient oriented x3 Limitations: language barrier HEENT Face and sinus: Yes face symmetric Teeth and gingiva: other (mallampti score is 4) Eyes Pupils: Equal, round and reactive pupils present Neck Neck: Yes full ROM Resp Effort & Inspection: normal respiratory effort and able to speak in complete sentences Neuro General: patient oriented x3 and moves all extremities Cranial nerves: Yes Equal, round and reactive pupils present, Yes Normal accommodation reflex present, Yes Normal facial strength present, Yes Midline tongue present, Yes Ability to bilaterally rotate head present and Yes Ability to bilaterally elevate shoulders present Cognition (Neuro): normal cognition Gait exam (Neuro): Antalgic gait present Motor exam (neuro): 5/5 motor strength present throughout and Normal motor muscle tone present throughout Psych Appearance: grossly normal Speech and movement: Normal speech and movement present Attitude: cooperative Thought content: Normal thought content present Results Reviewed Results Reviewed: HST c/w AHI of 26 and Oxygen nadirs to 78% will start him on cpap [id number] and follow up for compliance. labs reviewed with pt., vitamin D is low, will start otc Vitamin d, daily. Assessment & Plan Assessment & Plan (1) Excessive daytime sleepiness: Code(s): G47.19 - Other hypersomnia Category: Medical (2) Loud snoring: Code(s): R06.83 - Snoring Category: Medical (3) Vitamin D deficiency: Code(s): E55.9 - Vitamin D deficiency, unspecified Category: Medical (4) Morbid obesity: Code(s): E66.01 - Morbid (severe) obesity due to excess calories Category: Medical (5) RLS (restless legs syndrome): Code(s): G25.81 - Restless legs syndrome Category: Medical Plan Moderate Severe BARTOLO HST reviwed with pt. will start him on cpap [id number] and follow up for compliance. Snoring Vit D deficiency RLS will monitor obesity Weight management referral, elevated BMI 46 Labs to r/o deficiencies F/U in 3 months Orders: Orders Homocysteine Today G47.19 - Other hypersomnia, G47.9 - Sleep disorder, unspecified, R06.83 - Snoring, R53.83 - Other fatigue Vitamin B1 Today G47.19 - Other hypersomnia, R06.83 - Snoring Ferritin Today G47.19 - Other hypersomnia, R06.83 - Snoring Methylmalonic Acid Today G47.19 - Other hypersomnia, G47.9 - Sleep disorder, unspecified, R06.83 - Snoring, R53.83 - Other fatigue IRON PROFILE Today G47.19 - Other hypersomnia, G47.9 - Sleep disorder, unspecified, R06.83 - Snoring, R53.83 - Other fatigue Vitamin B12 and Folate Today G47.19 - Other hypersomnia, R06.83 - Snoring Referrals Medical Weight Management Referral E66.01 - Morbid (severe) obesity due to excess calories Patient Instructions: Sleep Hygiene provided: set a scheduled bedtime and wake time to help regulate the circadian rhythm and balance the release of pituitary hormones. Sleep in a dark room, temperatures below 68 degrees, and no devices n bed. Limit caffeinated products 6 hours prior to bed, and limit fluids 2-4 hours prior to bed. Gentle night yoga, diffusing essential oils, and playing soft music can be relaxing. Coding Level of Care Code New Pt Level 4 (88098) Diagnoses Excessive daytime sleepiness G47.19 Loud snoring R06.83 Vitamin D deficiency E55.9 Morbid obesity E66.01 RLS (restless legs syndrome) G25.81 Sleep Questionnaire Difficulty falling asleep: Yes Difficulty staying asleep?: No Number of arousals: 1 Snoring: Yes Witnessed apneas: Yes Gasping arousals: Yes Nocturia: No GERD: No Vivid dreams: Yes Acting out dreams: Yes Abnormal behavior in sleep: Yes Abnormal movements in sleep: Yes Morning headaches: No Excessive daytime sleepiness: Yes Daytime naps: No Restless legs: Yes Hallucinations: No Sleep paralysis: No Drop attacks: No Sleep Study: No CPAP: No
[2025-03-21 14:14] VITALS: BP 114/74; PULSE 95; O2SAT 97; BMI 46.1
== END 2025-03-21 14:57 | disposition home or self-care (01) ==
LOC: HO.HSMC 14:12
PROVIDERS: Visit Provider Physician Assistant Medical
DX: G47.19 Other hypersomnia (principal); R06.83 Snoring; E55.9 Vitamin D deficiency, unspecified; E66.01 Morbid (severe) obesity due to excess calories; G25.81 Restless legs syndrome
CPT/HCPCS: 99204

== ENCOUNTER 2025-04-28 06:58 | Outpatient (REF) | payer OTHER, SELFPAY ==
[2025-04-28 07:13] LABS: MANUAL DIFF FLAG NO
[2025-04-28 07:41] LABS: Hematocrit 46.6 % (42.0-52.0); Hemoglobin 15.1 g/dl (14.0-18.0); Imm Gran Abs Auto 0.02 X10*3/uL (0.00-0.03); Imm Gran Pct Auto 0.3 % (0.0-0.4); Lymphocytes Absolute Auto 2.8 X10*3/uL (1.2-4.9); Mean Corpuscular HGB Conc 32.4 g/dl (31.0-36.0); Mean Corpuscular Hemoglobin 27.3 pg (27.0-33.0); Mean Corpuscular Volume 84.3 fL (80.0-98.0); NRBC Abs Auto 0.000 X10*3/uL (0.0-0.012); NRBC Pct Auto 0.0 /100WBC (0.0-0.2); Platelet Count 245 X10*3/uL (160-400); Red Blood Count 5.53 X10*6/uL (4.60-5.80); White Blood Count 7.3 X10*3/uL (4.8-10.8)
[2025-04-28 07:47] LABS: Appearance Urine Clear; Glucose Urine UA Negative (Negative); PH 6.0 (5.0-9.0); Specific Gravity - Urine 1.020 (1.005-1.025); UMIC TRIGGER UACC YES
[2025-04-28 07:52] LABS: UACC Culture Trigger YES
[2025-04-28 08:12] LABS: Alanine Aminotransferase 37 U/L (0-40); Albumin Level 4.5 g/dL (3.5-5.0); Alkaline Phosphatase 62 U/L (39-117); Anion Gap 10 (12-20); Aspartate Amino Transferase 22 U/L (5-37); Blood Urea Nitrogen 14 mg/dL (9-16); Calcium 9.0 mg/dL (8.4-10.2); Carbon Dioxide 25 mmol/L (22-29); Chloride 108 mmol/L (96-108); Cholesterol 135 mg/dL (<200); Estimated Glomerular Filt Rate > 60; HDL Cholesterol 37 mg/dL (>40); Iron 55 mcg/dL (45-160); Percent Iron Saturation 22 % (15-50); Potassium 4.2 mmol/L (3.3-5.1); Sodium 139 mmol/L (135-145); Total Iron Binding Capacity 251 mcg/dL (228-428); Total Protein 7.2 g/dL (6.5-8.0); Triglycerides 61 mg/dL (<150); Unsaturated Iron Binding 196 ug/dL
[2025-04-28 08:28] LABS: Ferritin 232 ng/mL (20-250)
[2025-04-28 08:40] LABS: Folate 6.5 ng/mL (> or = 4.0); Vitamin B12 478 pg/mL (200-900)
== END 2025-04-28 06:59 | disposition home or self-care (01) ==
LOC: HO.LAB 06:58
PROVIDERS: Physician Assistant Medical
DX: G47.19 Other hypersomnia (principal); R53.83 Other fatigue; R06.83 Snoring; R03.0 Elevated blood-pressure reading, without diagnosis of hypertension; E66.01 Morbid (severe) obesity due to excess calories; E55.9 Vitamin D deficiency, unspecified; R74.01 Elevation of levels of liver transaminase levels; R73.01 Impaired fasting glucose
CPT/HCPCS: 36415; 80053; 80061; 81001; 82306; 82607; 82728; 82746; 83036; 83090; 83540; 83921; 84425; 84443; 85025; 87086

== ENCOUNTER 2025-05-04 15:26 | Outpatient (AMB) | payer OTHER, SELFPAY ==
[2025-05-04 15:43] VITALS: BP 124/78; PULSE 92; RESP 18; O2SAT 95; BMI 46.1
--- NOTE | 2025-05-04 15:43 | MHC.PC.OV ---
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 Required: No Accompanied by: Self / Same As Patient Allergies Seasonal Allergies Allergy (Intermediate, Verified 05/04/25 15:52) Itchy Eyes Medication List - Last Reconciled 05/04/25 by FLY George fluticasone propionate 50 mcg/actuation 2 sprays intranasal BID lisinopril 5 mg PO DAILY Tobacco use date assessed: 05/04/25 Dental Screening Dental Screen Date: 05/04/25 Did you have a dental visit in the last 12 months?: No Did you have a dental problem in the last 6 months where you did not have access to dental care?: No Was dental information given to patient?: Patient has dentist HPI htn/elevated ALT/BARTOLO HPI Details 30-year-old male presenting for HTN, elevated ALT, BARTOLO, obesity, vitamin-D deficiency follow up Recently started wearing CPAP machine, had to stop due to respiratory illness, struggling with nasal congestion, purulent nasal drainage, and recurrent cough HX of allergic rhinitis, uses Flonase HTN: BP 124/78, reports compliant with lisinopril 5 mg daily, denies any side effects from medication ALT: Normalized on recent labs, denies alcohol, denies frequent use of Tylenol, reports fatty foods but cutting down Vitamin-D deficiency: Continues to be low, increase vitamin D3 to 2000 IU or 50 mcg daily [facility] Surgical History History of wisdom tooth extraction Family History Father Sleep apnea Diabetes Over weight Mother Sleep apnea Over weight Heart disease Other Heart problem Social History Housing: House Alcohol intake: never Patient Tobacco Use Status: Never used Tobacco e-Cigarette/Vaping Use: Never Used Second Hand Smoke Exposure: No service: No Current occupational status: employed Current occupation: [employer] Cognitive needs: No Hearing needs: No Vision needs: No Questionnaire PHQ-9 Over the last 2 weeks, how often have you been bothered by any of the following problems? 1. Little interest or pleasure in doing things: not at all 2. Feeling down, depressed, or hopeless: not at all 3. Trouble falling or staying asleep, or sleeping too much: more than half the days 4. Feeling tired or having little energy: more than half the days 5. Poor appetite or overeating: several days 6. Feeling bad about yourself - or that you are a failure or have let yourself or your family down: several days 7. Trouble concentrating on things, such as reading the newspaper or watching television: not at all 8. Moving or speaking so slowly that other people could have noticed. Or the opposite - being so fidgety or restless that you have been moving around a lot more than usual: not at all 9. Thoughts that you would be better off or of hurting yourself in some way: not at all Total score: 6 Depression Screening Interpretation: Positive Depression Screening Done: Yes Source: Developed by Drs. Dustin Leonard, Venita Stock, Henrik Smith and colleagues, with an educational salvador from [employer]. Thrive Questionnaire Date Thrive assessed: 05/04/25 I am a: Patient What is your living situation today?: I have a steady place to live Within the past 12 months, did the food you bought not last and you didn't have the money to get more?: I choose not to answer this question Within the past 12 months, did you worry whether your food would run out before you got money to buy more?: I choose not to answer this question Do you have trouble paying for medicines?: No Do you have trouble getting transportation to medical appointments?: No Do you have trouble paying your heating and electricity bill?: No Do you have trouble taking care of your child, family member or friend?: No Do you have trouble with day-to-day activities such as bathing, preparing meals, shopping, managing finances, etc.?: No Are you currently unemployed and looking for a job?: No Are you interested in more education?: I choose not to answer this question Please select the resources that you would like help with: None Currently or been in a relationship where the following occur: No concerns reported THRIVE Score: 0 AUDIT C Alcohol Use Questionnaire (AUDIT-C) 1. How often do you have a drink containing alcohol?: Never 3. How often do you have six or more drinks on one occasion?: Never Total Score: 0 SARAH-7 AMB Questionnaire SARAH-7 Date SARAH - 7 assessed: 01/30/25 Feeling nervous, anxious, or on edge: 0 = Not at all Not being able to stop or control worryin = Not at all Worrying too much about different things: 1 = Several days Trouble relaxin = Several days Being so restless that it is hard to sit still: 1 = Several days Becoming easily annoyed or irritable: 0 = Not at all Feeling afraid as if something awful might happen: 0 = Not at all Total SARAH-7 score (0-4 normal; 5-9 mild; 10-14 moderate; 15-21 severe): 3 Source: Developed by Drs. Dustin Leonard, Venita Stock, Henrik Smith and colleagues, with an educational salvador from [employer]. Review of Systems Const Reports daytime sleepiness, Denies headache(s), Reports lethargy and Reports snoring Eyes Denies loss of vision ENT Denies vertigo, Denies dizziness, Denies headache(s), Reports nasal congestion, Reports nasal discharge (Greenish), Reports sinus pressure and Denies sore throat Card Denies chest pain, Denies leg edema and Denies lightheadedness Resp Reports cough, Denies hemoptysis, Reports snoring and Denies wheezing GI Denies abdominal pain, Denies melena, Denies constipation, Denies diarrhea and Denies vomiting Denies dysuria, Denies urinary frequency and Denies urinary urgency Musc Denies arthralgias, Denies joint swelling, Denies numbness and Denies tingling Neuro Denies Abnormal speech present, Denies behavioral changes, Denies vertigo, Denies dizziness, Denies headache(s), Denies loss of vision, Denies memory loss, Denies numbness and Denies tingling Psych Denies anxiety, Denies behavioral changes, Denies depression, Denies memory loss and Denies panic attacks Sunny/Lymph Denies easy bleeding and Denies easy bruising Aller/Immun Denies wheezing Physical exam (Primary Care) Vital Signs: Last Vital Signs Pulse 92 05/04/25 15:43 Resp 18 05/04/25 15:43 BP 124/78 05/04/25 15:43 Pulse Ox 95 05/04/25 15:43 Oxygen Delivery Method Room Air 05/04/25 15:43 BMI result Body Mass Index 46.1 Tobacco/Smoking Status: Tobacco use Status Tobacco use date assessed 05/04/25 05/04/25 15:49 Patient Tobacco Use Status Never used Tobacco 05/04/25 15:49 e-Cigarette/Vaping Use Never Used 05/04/25 15:49 PHQ-9: PHQ-9 Score PHQ-9: Total score 6 05/04/25 15:49 Depression Screening Interpretation: Positive Thrive Assessment: Date of Thrive Assessment Date Thrive assessed 05/04/25 05/04/25 15:49 Currently or been in a relationship where the following occur: No concerns reported Const General: healthy appearing, no acute distress, alert and awake Nutritional Appearance: well nourished Orientation/consciousness: oriented to person, oriented to place and oriented to time HENMT Ears: TM's normal bilaterally General nose exam: Abnormal mucous membranes and turbinates present boggy and erythematous bilateral Face and sinus: Yes sinus tenderness Eyes Conjunctivae: conjunctivae normal Sclerae: sclerae normal Pupils: Equal, round and reactive pupils present Neck Neck: Yes no lymphadenopathy and Yes no JVD Thyroid: Thyroid normal Carotids: no bruits Resp Effort & Inspection: normal respiratory effort and not tachypneic Auscultation: no crackles, no rales, no rhonchi and no wheezes Cardio Rate: regular rate Rhythm: regular rhythm Heart sounds: no murmurs and normal S1 and S2 GI Palpation (GI): Soft to palpation, nontender, no hepatomegaly and no splenomegaly Auscultation: normal bowel sounds Skin General skin exam: no rashes or lesions noted and dry skin Neuro General: oriented to person, oriented to place and oriented to time Cranial nerves: Yes Equal, round and reactive pupils present Speech: No Abnormal speech present Gait exam (Neuro): Normal gait present Motor exam (neuro): no tremor noted Extrem Right upper extremity: full ROM Left upper extremity: full ROM Right lower extremity: full ROM; no edema Left lower extremity: full ROM; no edema Psych Mental Status: mental status grossly normal Speech and movement: Normal speech and movement present Affect: normal affect Attitude: cooperative Thought process: Normal thought process present Results Reviewed Results Reviewed: Laboratory Tests 04/28/25 07:12 WBC 7.3 RBC 5.53 Hgb 15.1 Hct 46.6 MCV 84.3 MCH 27.3 MCHC 32.4 RDW 13.2 Plt Count 245 Sodium 139 Potassium 4.2 Chloride 108 Carbon Dioxide 25 Anion Gap 10 L BUN 14 Creatinine 0.90 Estimated GFR > 60 Fasting Glucose 115 H Estimat Average Glucose 123 Hemoglobin A1c % 5.9 Calcium 9.0 Iron 55 TIBC 251 % Saturation 22 Unsat Iron Binding 196 Ferritin 232 Total Bilirubin 0.5 AST 22 ALT 37 Alkaline Phosphatase 62 Total Protein 7.2 Albumin 4.5 Triglycerides 61 Cholesterol 135 LDL Cholesterol, Calc 86 HDL Cholesterol 37 L Vitamin B12 478 Methylmalonic Acid 81 25-OH Vitamin D Total 16.1 L Folate 6.5 Homocysteine 7.6 TSH 2.20 Coding Level of Care Code Est Pt Level 4 (54369) Diagnoses Elevated ALT measurement R74.01 Vitamin D deficiency E55.9 Impaired fasting glucose R73.01 Morbid obesity E66.01 Other microscopic hematuria R31.29 Hematuria type: other microscopic Rhinosinusitis J32.9 Hypertension, unspecified type I10 Hypertension type: unspecified Obstructive apnea G47.33 Time Spent (min) 37 Assessment & Plan Assessment & Plan (1) Elevated ALT measurement: Code(s): R74.01 - Elevation of levels of liver transaminase levels Category: Medical Plan: ALT normalized on recent labs. Patient denies drinking alcohol and only takes Tylenol sparingly. Encouraged the patient to work on losing weight, which will help decreasing his liver enzyme. We will continue to monitor (2) Vitamin D deficiency: Code(s): E55.9 - Vitamin D deficiency, unspecified Category: Medical Plan: Vitamin-D continues to be low, encouraged increase vitamin D3 to 2000 IU or 50 mcg (3) Impaired fasting glucose: Code(s): R73.01 - Impaired fasting glucose Category: Medical Plan: Fasting glucose 115. A1c 5.9%. Informed the patient that he is right at the cutoff of being prediabetic Encouraged a low sugar/carbohydrate diet and activity as tolerated (4) Morbid obesity: Code(s): E66.01 - Morbid (severe) obesity due to excess calories Category: Medical Plan: Encouraged to exercise for at least 30 minutes a day/5 days a week Healthy eating discussed. Encouraged to eat fruits/vegetables, protein-fish/baked chicken, and to avoid salty/fried foods, sweets, caffeine and carbohydrates. Encouraged to increase water intake 6-8 glasses a day (5) Hematuria: Code(s): R31.9 - Hematuria, unspecified Category: Medical Qualifiers: Hematuria type: other microscopic Qualified Code(s): R31.29 - Other microscopic hematuria Plan: Trace blood in the urine. Asymptomatic She will recheck urinalysis (6) Rhinosinusitis: Code(s): J32.9 - Chronic sinusitis, unspecified Category: Medical Plan: Augmentin 875-125mg BID X 7 days, Prednisone tapered and Flonase inhaler ordered (7) HTN (hypertension): Code(s): I10 - Essential (primary) hypertension Category: Medical Qualifiers: Hypertension type: unspecified Qualified Code(s): I10 - Essential (primary) hypertension Plan: Blood pressure 124/78-systolic goal less than 130 mm hg Reinforced low-salt diet Continue lisinopril 5 mg daily (8) Obstructive apnea: Code(s): G47.33 - Obstructive sleep apnea (adult) (pediatric) Category: Medical Plan: Recently started wearing CPAP machine, had to stop due to respiratory illness, struggling with nasal congestion, purulent nasal drainage, and recurrent cough HX of allergic rhinitis, uses Flonase. Augmentin 875-125 mg b.i.d. x7 days for rhinosinusitis. Plan Follow up in 3 months. Complete preordered labs prior to follow up appointment Orders: Orders Complete Blood Count Auto Diff 4 Months E55.9 - Vitamin D deficiency, unspecified, E66.01 - Morbid (severe) obesity due to excess calories, G47.33 - Obstructive sleep apnea (adult) (pediatric), R03.0 - Elevated blood-pressure reading, without diagnosis of hypertension, R73.01 - Impaired fasting glucose, R74.01 - Elevation of levels of liver transaminase levels Vitamin D 25-OH Total 4 Months E55.9 - Vitamin D deficiency, unspecified, E66.01 - Morbid (severe) obesity due to excess calories, G47.33 - Obstructive sleep apnea (adult) (pediatric), R03.0 - Elevated blood-pressure reading, without diagnosis of hypertension, R73.01 - Impaired fasting glucose, R74.01 - Elevation of levels of liver transaminase levels Hemoglobin A1c 4 Months E55.9 - Vitamin D deficiency, unspecified, E66.01 - Morbid (severe) obesity due to excess calories, G47.33 - Obstructive sleep apnea (adult) (pediatric), R03.0 - Elevated blood-pressure reading, without diagnosis of hypertension, R73.01 - Impaired fasting glucose, R74.01 - Elevation of levels of liver transaminase levels Comprehensive [place]. Panel Fast 4 Months E55.9 - Vitamin D deficiency, unspecified, E66.01 - Morbid (severe) obesity due to excess calories, G47.33 - Obstructive sleep apnea (adult) (pediatric), R03.0 - Elevated blood-pressure reading, without diagnosis of hypertension, R73.01 - Impaired fasting glucose, R74.01 - Elevation of levels of liver transaminase levels Lipid Panel 4 Months E55.9 - Vitamin D deficiency, unspecified, E66.01 - Morbid (severe) obesity due to excess calories, G47.33 - Obstructive sleep apnea (adult) (pediatric), R03.0 - Elevated blood-pressure reading, without diagnosis of hypertension, R73.01 - Impaired fasting glucose, R74.01 - Elevation of levels of liver transaminase levels UA CC w/rflx Micro + Cult 4 Months E55.9 - Vitamin D deficiency, unspecified, E66.01 - Morbid (severe) obesity due to excess calories, G47.33 - Obstructive sleep apnea (adult) (pediatric), R03.0 - Elevated blood-pressure reading, without diagnosis of hypertension, R73.01 - Impaired fasting glucose, R74.01 - Elevation of levels of liver transaminase levels TSH reflex Free T4 4 Months E55.9 - Vitamin D deficiency, unspecified, E66.01 - Morbid (severe) obesity due to excess calories, G47.33 - Obstructive sleep apnea (adult) (pediatric), R03.0 - Elevated blood-pressure reading, without diagnosis of hypertension, R73.01 - Impaired fasting glucose, R74.01 - Elevation of levels of liver transaminase levels Medications: New prednisone see taper instructions take 4 tabs x 2 days, then 3 tabs x 2 days, then 2 tabs x2 then 1 tab x2 days =20 tabs for 8 days 10 mg PO DIRECTED 20 tabs 0RF amoxicillin-pot clavulanate 875-125 mg 1 tab PO BID 14 tabs 0RF 7 days
== END 2025-05-04 16:14 | disposition home or self-care (01) ==
LOC: HO.HMCH 15:27
DX: R74.01 Elevation of levels of liver transaminase levels (principal); E55.9 Vitamin D deficiency, unspecified; R73.01 Impaired fasting glucose; R31.29 Other microscopic hematuria; J32.9 Chronic sinusitis, unspecified; I10 Essential (primary) hypertension; G47.33 Obstructive sleep apnea (adult) (pediatric)